=== PATIENT | male | born 1990 | race Caucasian/White ===

== ENCOUNTER → 2017-12-05 | Outpatient (CLI) | payer BC ==
[2017-12-05 15:25] LABS: MEAN CELL VOLUME 81 fl (80.0-100.0); MEAN CORPUSCULAR HGB CONC 34 g/dl (33.0-37.0); MEAN PLATELET VOLUME 11.5 fl (7.4-10.4); PLATELET COUNT 242 K/mm3 (130-400); RED BLOOD COUNT 6.62 M/mm3 (4.20-5.60); REDCELL DISTRIBUTION WIDTH-CV 12.5 % (11.5-14.5)
[2017-12-05 15:27] LABS: HEMATOCRIT 53.4 % (42.0-52.0); HEMOGLOBIN 18.2 g/dl (13.5-18.0); MEAN CORPUSCULAR HEMOGLOBIN 27 pg (27.0-31.0)
[2017-12-05 15:45] LABS: CALCIUM 10.3 mg/dL (8.4-10.2); CREATININE, serum 0.83 mg/dL (0.66-1.25); POTASSIUM 4.5 mmol/L (3.4-5.0); TOTAL PROTEIN 8.6 gm/dL (6.4-8.2)
== END ==
LOC: COL.LAB 15:01
PROVIDERS: Family Medicine
DX: Z01.89 Encounter for other specified special examinations (principal)